=== PATIENT | female | born 1995 | race Caucasian/White ===

== ENCOUNTER → 2022-08-26 | Outpatient (CLI) | payer OTHER, SELFPAY ==
[2022-08-26 15:06] LABS: Absolute Lymphocyte Count 2.18 X10^3/uL (0.83-4.51); Absolute Neutrophil Count 7.3 X10^3/uL (2.0-7.7); Basophil# 0.07 X10^3/uL; Basophil% 0.7 % (0-1); Eosinophil# 0.09 X10^3/uL; Eosinophils% 0.9 % (0-5); Hematocrit 36.7 % (37-47); Hemoglobin 12.4 g/dL (12.0-15.0); Lymphocyte # 2.18 X10^3/ul (0.83-4.51); Mean Corp Hgb Conc 33.8 g/dL (32-36); Mean Corpuscular Hgb 32.3 pg (27.0-32.0); Mean Corpuscular Volume 95.6 fL (81-99); Monocyte# 0.68 X10^3/uL; Monocyte% 6.5 % (0-10); NRBC Flagged by Analyzer 0 % (0-5); Neutrophil # 7.29 X10^3/uL (2.7-7.7); Neutrophil % 70.1 % (47-70); Platelet Count 247 K/mm3 (150-450); RBC Distribution Width CV 12.1 % (11.6-14.6); RBC Distribution Width SD 42.4 fl (35.1-43.9); Red Blood Count 3.84 M/mm3 (4.2-5.4); White Blood Count 10.4 K/mm3 (4.4-11.0)
[2022-08-26 16:39] LABS: HIV - WCH Non-Reactive (Nonreactive); Hepatitis B Surface Antigen Non-Reactive (Nonreactive); Hepatitis C Antibody Non-Reactive (Nonreactive); Rubella IgG Reactive (Nonreactive); Syphilis Antibodies Non-reactive
[2022-08-28 17:22] LABS: V-Zoster IgG (Immunity) 1075 index (Immune >165)
== END | disposition home or self-care (01) ==
PROVIDERS: Visit Provider Obstetrics & Gynecology
DX: Z34.81 Encounter for supervision of other normal pregnancy, first trimester (principal)
CPT/HCPCS: 36415; 85025; 86703; 86762; 86780; 86787; 86803; 87086; 87340

== ENCOUNTER → 2022-10-30 | Outpatient (CLI) | payer OTHER, SELFPAY ==
[2022-10-30 14:49] LABS: Absolute Lymphocyte Count 2.18 X10^3/uL (0.83-4.51); Absolute Neutrophil Count 10.6 X10^3/uL (2.0-7.7); Basophil# 0.09 X10^3/uL; Basophil% 0.6 % (0-1); Eosinophil# 0.08 X10^3/uL; Eosinophils% 0.6 % (0-5); Glucose Challenge Gest 1H 50g 109 mg/dL (70-140); Hematocrit 37.6 % (37-47); Hemoglobin 12.5 g/dL (12.0-15.0); Lymphocyte # 2.18 X10^3/ul (0.83-4.51); Lymphocyte % 15.4 % (19-41); Mean Corp Hgb Conc 33.2 g/dL (32-36); Mean Corpuscular Hgb 32.6 pg (27.0-32.0); Mean Corpuscular Volume 98.2 fL (81-99); Mean Platelet Vol. 11.1 fl (6.2-12.0); Monocyte# 0.85 X10^3/uL; NRBC Flagged by Analyzer 0 % (0-5); Neutrophil # 10.57 X10^3/uL (2.7-7.7); Neutrophil % 74.7 % (47-70); Platelet Count 230 K/mm3 (150-450); RBC Distribution Width CV 12.4 % (11.6-14.6); RBC Distribution Width SD 45.3 fl (35.1-43.9); Red Blood Count 3.83 M/mm3 (4.2-5.4); White Blood Count 14.2 K/mm3 (4.4-11.0)
[2022-10-30 15:13] LABS: Syphilis Antibodies Non-reactive
== END | disposition home or self-care (01) ==
LOC: WOBLAB 14:13
PROVIDERS: Visit Provider Obstetrics & Gynecology
DX: Z34.82 Encounter for supervision of other normal pregnancy, second trimester (principal); Z3A.00 Weeks of gestation of pregnancy not specified
CPT/HCPCS: 36415; 82950; 85025; 86780

== ENCOUNTER → 2023-01-15 | Outpatient (CLI) | payer OTHER, SELFPAY ==
[2023-01-15 16:50] LABS: Hematocrit 36.2 % (37-47); Hemoglobin 11.8 g/dL (12.0-15.0); Mean Corp Hgb Conc 32.6 g/dL (32-36); Mean Corpuscular Hgb 30.9 pg (27.0-32.0); Mean Corpuscular Volume 94.8 fL (81-99); Mean Platelet Vol. 11.7 fl (6.2-12.0); Platelet Count 220 K/mm3 (150-450); RBC Distribution Width CV 12.3 % (11.6-14.6); RBC Distribution Width SD 42.4 fl (35.1-43.9); Red Blood Count 3.82 M/mm3 (4.2-5.4); White Blood Count 13.5 K/mm3 (4.4-11.0)
== END | disposition home or self-care (01) ==
LOC: LABSPEC 16:19
PROVIDERS: Referring Provider Obstetrics & Gynecology; Visit Provider Obstetrics & Gynecology
DX: Z34.83 Encounter for supervision of other normal pregnancy, third trimester (principal); Z36.85 Encounter for antenatal screening for Streptococcus B; Z3A.00 Weeks of gestation of pregnancy not specified
CPT/HCPCS: 85027; 87081

== ENCOUNTER 2023-01-21 18:45 | Outpatient (CLI) | payer OTHER, SELFPAY ==
[2023-01-21 18:58] VITALS: BP 133/89; PULSE 75
[2023-01-21 18:59] VITALS: BP 133/89; PULSE 77; PULSE 82; TEMP 36.9; O2SAT 100
[2023-01-21 19:04] VITALS: PULSE 67; O2SAT 100
[2023-01-21 19:15] VITALS: BP 121/83; PULSE 77
[2023-01-21 19:18] VITALS: BMI 25.9
[2023-01-21 19:29] VITALS: BP 121/76; PULSE 72
[2023-01-21] MEDS: Lactated Ringers 1,000 ML 999 ML IV (19:30)
--- NOTE | 2023-01-21 19:34 | EKG12_ITS ---
Test Reason : IRR HB Blood Pressure : / mmHG Vent. Rate : 069 BPM Atrial Rate : 069 BPM P-R Int : 146 ms QRS Dur : 082 ms QT Int : 386 ms P-R-T Axes : 022 011 -03 degrees QTc Int : 413 ms Normal sinus rhythm Normal ECG No previous ECGs available Confirmed by IRENA MOORE, JASPER ([id number]), map editor SABINA COE ([id number]) on 01/23/2023 1:33:42 PM Referred By: Confirmed By:FREDY OSBORN MD
[2023-01-21 19:44] VITALS: TEMP 37.5
[2023-01-21 19:52] LABS: Absolute Lymphocyte Count 2.08 X10^3/uL (0.83-4.51); Basophil# 0.08 X10^3/uL; Basophil% 0.6 % (0-1); Eosinophil# 0.06 X10^3/uL; Eosinophils% 0.5 % (0-5); Hematocrit 36.7 % (37-47); Hemoglobin 11.7 g/dL (12.0-15.0); Lymphocyte # 2.08 X10^3/ul (0.83-4.51); Lymphocyte % 16.8 % (19-41); Mean Corp Hgb Conc 31.9 g/dL (32-36); Mean Corpuscular Hgb 30.4 pg (27.0-32.0); Mean Corpuscular Volume 95.3 fL (81-99); Monocyte# 0.94 X10^3/uL; Monocyte% 7.6 % (0-10); NRBC Flagged by Analyzer 0 % (0-5); Neutrophil # 8.95 X10^3/uL (2.7-7.7); Neutrophil % 72.1 % (47-70); Platelet Count 204 K/mm3 (150-450); RBC Distribution Width CV 12.5 % (11.6-14.6); RBC Distribution Width SD 42.8 fl (35.1-43.9); Red Blood Count 3.85 M/mm3 (4.2-5.4); White Blood Count 12.4 K/mm3 (4.4-11.0)
[2023-01-21 20:08] LABS: ALB/GLOB Ratio 0.6 RATIO (0.9-2.4); AST(SGOT) 11 U/L (15-37); Alanine Aminotransfer ALT/SGPT 13 U/L (13-56); Albumin, Serum 2.7 g/dL (3.2-5.0); Alkaline Phosphatase 145 U/L (45-117); Anion Gap 7 (5-15); BUN 9 mg/dL (7-18); BUN/Creat Ratio 12.8 RATIO (10-20); Calcium,Total 8.6 mg/dL (8.5-10.1); Chloride 105 mmol/L (98-107); EST Glomerular Filtration Rate 105 mL/min (>60); Est Glom Filt Rate - Afr Amer 127 mL/min (>60); Estimated Creatinine Clearance 133.73 ml/min; Globulin 4.2 g/dL (2.2-4.2); Glucose 92 mg/dL (74-106); LDH 195 U/L (84-246); Potassium 3.5 mmol/L (3.5-5.1); Protein, Total 6.9 g/dL (6.4-8.2); Sodium Level 135 mmol/L (136-145)
--- NOTE | 2023-01-21 21:32 | OB.TRI.NOTE ---
HPI - General General Date of Service: 01/21/23 HPI Narrative EDNA SMITH, is a 27 F who presents after noticing visual changes and confusion at home after work. State patient states long day at work being overworked and did admit that she was dehydrated today. States finished work had some tunnel vision that improved after rest and some hand swelling. Arrived home and begin to rest and hydrate and her noted that she was partially confused about family and friends names. Patient also admits that she felt super anxious at the time and admits that she may have continue to have increased anxiety over time. Now at triage feels well feels alert and denies confusion and denies visual changes. Denies shortness of breath, chest pain, right upper quadrant pain, weakness. Denies any weakness in limbs or limitations. States good movement PFSH PFSH Home Medications magnesium 200 mg tablet 200 mg PO DAILY 01/21/23 [History Last Taken 01/21/23 07:00 200 mg] vit no.95-ferrous fumarate 28 mg-folic acid 800 mcg tablet ( Multivitamins) 1 tab PO DAILY 01/21/23 [History Last Taken 01/21/23 19:00 1 TAB] Allergy/AdvReac Type Severity Reaction Status Date / Time No Known Allergies Allergy Verified 01/21/23 19:19 Physical Exam Const alert, oriented x3, no apparent distress, average body habitus, no limitations, healthy appearing and well nourished General Appearance: cooperative and comfortable HEENT moist oral mucous membranes Head and Scalp: normocephalic and atraumatic Eyes PERRL Neck full ROM Resp normal respiratory effort, no retractions, no use of accessory muscles and clear to auscultation bilaterally Resp Narrative: No wheezes rales or crackles Cardio regular rate, regular rhythm, S1 normal heart sound, S2 normal heart sound, no murmurs, no rub, no gallops and peripheral pulses 2+ throughout GI normal to inspection, nondistended, normoactive bowel sounds GI Narrative: Gravid. Negative right upper quadrant pain Extremity normal to inspection, full ROM and no clubbing, cyanosis or edema Neuro moves all extremities, no focal motor deficits and deep tendon reflexes 2+ bilaterally Motor Exam: strength 5/5 throughout and clonus absent Psych mental status grossly normal, affect normal, speech normal and activity/motor behavior normal NST FHR Rate Baby A Baseline: 120 Variability:: Moderate Accelerations:: 15 x 15 Decelerations:: None NST Reactive:: Yes Uterine Activity:: Every 8 minutes Assessment & Plan (1) : PLAN: Called by nursing patient arrived to triage with previous tunnel vision and confusion per partner. Nursing states partner noted at home to have confusion with patient's family's names. Nursing states overall currently seems to have no confusion and partner admits no confusion or limitations. Nursing also noted possible arrhythmia with auscultation but also admitted that the pulse ox rate was persistently normal. Given orders nursing for labs, EKG, continuous monitoring and to call with results. Called by nursing that patient continues to remain stable with no confusion or tunnel vision and partner admits patient seems recovered. Nursing informed me that EKG normal sinus and that air conditioning technician stated in room to continue monitoring and did not find arrhythmia. Labs within normal limits. Discussed case with nursing and nursing after further history patient admitted to increased levels of anxiety at work and admits possible panic attack. Informed nursing will come evaluate patient. Patient seen and examined. Overall patient resting comfortably in bed and appropriate AOA x3 no limitations no deficits. Rediscussed case thoroughly with patient's version and partner's version of the story. Patient and partner both admit patient feels fully recovered partner feels patient fully recovered. Patient states high anxiety at work with overstressed workload discussed note for work to limit work days and retry to reduce stress levels given therapeutic options both at home and with counseling for decreased anxiety. Overall my evaluation with no signs of arrhythmia possible PVC x1 heard during prolonged auscultation but overall 99% of the auscultation showed regular rate and rhythm. Again patient with no deficits or limitations. Patient denies cardiac history. Educated patient on options discussed overnight stay with cardiac consult to be seen in the morning, patient and partner declined at this time wishing to go home for rest and office appointment tomorrow. Discussed signs and symptoms of concern for repeat evaluation but overall based on patient's stability okay for discharge home. Patient now remains asymptomatic feels much improved after IV fluids and rest. Okay to discharge home
== END 2023-01-21 21:50 | disposition home or self-care (01) ==
LOC: WPOUT 18:55 → WP 18:55
PROVIDERS: Visit Provider Obstetrics & Gynecology
DX: O99.891 Other specified diseases and conditions complicating pregnancy (principal); H53.8 Other visual disturbances; Z3A.00 Weeks of gestation of pregnancy not specified
CPT/HCPCS: 96360; 36415; 59025; 59050; 80053; 83615; 85025; 86850; 86900; 86901; 93005; 99221; J7120; G0378

== ENCOUNTER 2023-02-05 11:35 | Inpatient (IN) | payer OTHER, SELFPAY ==
[2023-02-05] VITALS (15 sets, daily range): BP systolic 106–138; BP diastolic 59–88; PULSE 67–105; RESP 18; TEMP 36.8–37.1; O2SAT 99; BMI 26.1
[2023-02-05 09:11] LABS: ROM Internal Control Test YES-OK TO RESULT pt. (Internal QC); Record Kit Lot#, ROM+ K1374
[2023-02-05 09:29] LABS: ROM Patient Test Negative (Negative)
[2023-02-05] MEDS: 0.9% Saline Lock 10 ML Syringe IV (12:00)
[2023-02-05 12:24] LABS: Absolute Lymphocyte Count 2.11 X10^3/uL (0.83-4.51); Basophil# 0.08 X10^3/uL; Basophil% 0.6 % (0-1); Eosinophil# 0.08 X10^3/uL; Eosinophils% 0.6 % (0-5); Hematocrit 37.8 % (37-47); Hemoglobin 11.9 g/dL (12.0-15.0); Lymphocyte # 2.11 X10^3/ul (0.83-4.51); Lymphocyte % 15.4 % (19-41); Mean Corp Hgb Conc 31.5 g/dL (32-36); Mean Corpuscular Hgb 30.1 pg (27.0-32.0); Mean Corpuscular Volume 95.5 fL (81-99); Mean Platelet Vol. 12.1 fl (6.2-12.0); Monocyte# 1.08 X10^3/uL; Monocyte% 7.9 % (0-10); NRBC Flagged by Analyzer 0 % (0-5); Neutrophil # 10.04 X10^3/uL (2.7-7.7); Neutrophil % 73.2 % (47-70); Platelet Count 230 K/mm3 (150-450); RBC Distribution Width CV 12.8 % (11.6-14.6); RBC Distribution Width SD 44.3 fl (35.1-43.9); Red Blood Count 3.96 M/mm3 (4.2-5.4); White Blood Count 13.7 K/mm3 (4.4-11.0)
--- NOTE | 2023-02-05 13:36 | PCM.HP.BLA ---
History and Physical Date of Admission: 02/05/23 HPI: 27-year-old G1, P0 at 39/1 weeks, RANDY 02/11/2023 by first trimester ultrasound, admitted in labor. Patient reports contractions.. Denies vaginal bleeding or decrease in movement. Denies headache or vision changes, chest pain or shortness of breath, nausea or vomiting, diarrhea constipation. 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 Right foot surgery in 2022, was on Lovenox for a few weeks post surgery 2. [place] tooth extraction Family history: Denies history of blood clots or bleeding disorders, no history of issues with anesthesia Allergies: B no known drug allergies Social history: Denies tobacco, alcohol, drug use Review of system: Negative otherwise stated above Physical exam: Blood pressure 127/84, heart rate 74, temp 98.7 ?F, oxygen saturation 99% on room air General: No acute distress HEENT: Normal cephalic/atraumatic Cardiorespiratory: No increased effortar Abdomen: Soft, nontender, gravid Extremities: No edema Neurologic: No focal deficits Musculoskeletal: Moves all extremities equally Cervical exam: Per RN 3 cm FHR: 140/mod lynne/+accel/no decel Assessment/plan: 27-year-old G1, P0 at 39/1 weeks, RANDY 02/11/2023 by first trimester ultrasound, admitted in labor. ?Admit to labor and delivery, no routine orders ? GBS negative ? ROM was negative ? Continue expectant management, consider AROM if needed.
[2023-02-05] MEDS: Lactated Ringers 1,000 ML 150 ML IV (13:57)
[2023-02-05 15:00] LABS: Syphilis Antibodies Non-reactive
--- NOTE | 2023-02-05 17:17 | EX.PCM.OBRPT ---
Maternal Data Information Final RANDY: 02/11/23 Vaginal Delivery Operative Information Date of Procedure: 02/05/23 Pre-Operative Diagnosis: Frais intrauterine Post-Operative Diagnosis: Same Type of Anesthesia: None Estimated Blood Loss: 300 cc Findings Description of Procedure: Spontaneous vaginal delivery of viable infant female. No nuchal cord. Baby to mom. Cord clamped and cut. Spontaneous delivery of placenta. Second-degree laceration. Lidocaine injected. Laceration repaired in the usual fashion, hemostatic. Patient declines prophylactic Pitocin. Understands risk. Amniotic Fluid Description: Lightly stained meconium A Gender: Female (1 minute): 8 (5 minute): 9 Delayed Cord Clamping: Yes Complication Complications: None
[2023-02-05] MEDS: Acetaminophen 500 MG Tablet 1000 MG PO (17:59)
[2023-02-05] MEDS: Lidocaine 1% (20 ml mdv) 20 ML Vial INFILT (19:13)
[2023-02-06] VITALS (10 sets, daily range): BP systolic 114–130; BP diastolic 67–79; PULSE 74–86; RESP 15–18; TEMP 36.8–37.1; O2SAT 97–99
--- NOTE | 2023-02-06 06:46 | PCM.PN.OB ---
Subjective Subjective No overnight complaints Objective Data Objective Data Vital Signs: Vital Signs Temp Pulse Resp BP Pulse Ox O2 Del Method 98.3 F 74 18 116/67 99 Room Air 02/05/23 20:43 02/06/23 04:24 02/06/23 04:24 02/06/23 04:24 02/05/23 08:30 02/06/23 04:24 Oxygen Delivery Method Room Air Weight: 187 lb 6.287 oz Body Mass Index (BMI) 26.1 Intake & Output: Intake and Output for Last 24 Hours 02/04/23 02/05/23 02/06/23 23:59 23:59 23:59 Intake Total 720 / 720 Output Total 300 / 300 Balance 420 / 420 Lab / Micro Data 02/05/23 12:00 Labs: Laboratory Results - last 24 hr 02/05/23 08:49: Vag Amniotic Fld Detect Negative 02/05/23 12:00: WBC 13.7 H, RBC 3.96 L, Hgb 11.9 L, Hct 37.8, MCV 95.5, MCH 30.1, MCHC 31.5 L, RDW Std Deviation 44.3 H, RDW Coeff of Jolene 12.8, Plt Count 230, MPV 12.1 H, Immature Gran % (Auto) 2.300 H, Neut % (Auto) 73.2 H, Lymph % (Auto) 15.4 L, [place] % (Auto) 7.9, Eos % (Auto) 0.6, Baso % (Auto) 0.6, Absolute Neuts (auto) 10.0 H, Absolute Lymphs (auto) 2.11, Nucleated RBC % 0, Syphilis Total Ab Non-reactive, Blood Type B POSITIVE, Antibody Screen NEGATIVE Physical Exam Const alert, oriented x3, no apparent distress, average body habitus, healthy appearing and well nourished HEENT normocephalic and moist oral mucous membranes Eyes PERRL Neck full ROM Resp normal respiratory effort, no retractions and no use of accessory muscles GI GI Narrative: Soft, nontender, uterus firm and below umbilicus Extremity normal to inspection and full ROM Neuro moves all extremities and no focal motor deficits Psych mental status grossly normal, affect normal, speech normal and activity/motor behavior normal Assessment & Plan (1) Vaginal delivery: PLAN: day 1. Breast-feeding. Pain well controlled. Okay to discharge home today if okay with final finisher
--- NOTE | 2023-02-06 06:47 | DCINST_ITS ---
Discharge Instructions Diet Discharge Diet: No restrictions Activity Discharge Activity: Return to Normal Activity, May Drive and May Shower May resume sexual activity in: 6-8 weeks Weight Bearing Status: Weight bearing as tolerated Dressing / Incision Call your doctor if your incision/area has: Continuous Slow Oozing and Foul Smelling Discharge Call your doctor if you observe: Fever of 101 or Higher, Shortness of breath and Chest pain Follow Up Care Please Follow Up With: Giorgi Duarte MD When: 3 to 4 weeks Test Results: Test results from this visit will be discussed in further detail at your follow- up appointment, if applicable. Discharge Plan Admission Admit Date/Time: 02/05/23 11:35 Attending Provider: Dena Duarte Primary Care Provider: Care Physician,Meghana Primary Discharge Orders/Prescriptions Prescriptions: No Action PNV cmb#95-ferrous fumarate-FA [ Multivitamins] 28 mg iron- 800 mcg tablet 1 tab PO DAILY magnesium 200 mg tablet 300 mg PO DAILY Referrals / Follow Up: Care Physician,No Primary [Primary Care Provider] -
[2023-02-06] MEDS: Ibuprofen 600 MG Tablet PO (10:15)
[2023-02-06] MEDS: Senna/Docusate Sodium 1 Tablet PO (13:59)
[2023-02-06] MEDS: Acetaminophen 500 MG Tablet 1000 MG PO ×2 (14:09→22:12)
--- NOTE | 2023-02-06 15:45 | CASEMGMT ---
Social Work Assessment Labor and Delivery Unit Patient Address:[address] [place] [id number] Phone number: [phone] Date of Referral: 02/05/23 Time of Referral:?1310 Referred By: Dr. Giorgi Duarte Date of Intervention: 02/06/23?? Time of Intervention:? 1030 Reason for Referral:? Patient answered that her father has an addiction Sw completed chart review and acknowledges social work consult. Sw presented to bedside and met with mother of baby (ROGELIO- Sherie) and father of baby (FOB- Juanjose). Sw introduced self and explained sw role during hospitalization. Sw completed psychosocial assessment with parents and provided much support. History obtained from: medical records, MOB and FOB. Household composition: Household composition is currently comprised of parents and baby girl. Parents state that no one else resides with them at this time. Patient's parent/guardian status:? ROGELIO is 28 year old, female who is to Cheryl. Parents state that they met in 2015 while in college together at [employer]. Parents got in 2019. baby is first baby for both parents. When talking with ROGELIO privately she denied any concerns of domestic abuse or intimate partner violence. Medical History: ROGELIO received routine care throughout with [place]. ROGELIO states that she is worried who to go to for OBGYN services at this time due to [facility] announcing that they are no longer going to be practicing. ROGELIO is 1, para 0- now 1. Baby girl, Jaida Sewell, was born on 02/05/23 weighing 8lb and her apgars were 8 and 9 at one and five minutes of life respectfully. ROGELIO states that she is breast feeding and this is going well, but feels as though she and baby are still learning. Sw enouraged ROGELIO to utilize [facility] as well as outpatient services that are available to her even after discharge. MOB state that she does have a pump. Educational Status: Both parents graduated from high school and obtained college degrees from [employer]. Parents deny struggles or issues with learning. Financial Status: Both parents are gainfully employed outside of the home. 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 ROGELIO works at [employer] in the admissions department. Both parents are able to take time off of work now that baby has been born. Supplies:?Parents state that they have obtained all necessary baby items including: car seat, safe sleep space, clothes, diapers, wipes and breast pump. Childcare/Caregiver(s):? MOB states that when both parents have returned to work they will be able to use some family members and friends for childcare. Transportation:??Both parents have their drivers license and reliable means of transportation. No barriers to transportation at this time. Programs/Agencies Involved: None at this time. ??? Children Services/Legal Issues:??No former involvement with Children's Services, no issues or concerns warranting a referral to be made. ? Behavioral Health Issues: ??Mental Health History: Both parents deny history of mental health. ??? Substance Use History:?Both parents deny substance use prior to and during . ? Family History:???MOB states that her father is an alcoholic. MOB states that this is something that started when he retired from the when she was a teenager. MOB states that she and FOB have discussed this concern and have agreed that they have boundaries they will follow now that baby has been born. Parents state that they live an hour away from maternal grandparents, and maternal grandpa will not ever be responsible for providing care to baby independently. ?? Drug Screens: No urine screens observed. ? Family/Social Stressors:? MOB states that the biggest stressor they have is the fact that her dad is an alcoholic. MOB states that it took her a long time to recognize and acknowledge that SANTO was right about this. MOB state that this did affect their marriage for a temporary time. MOB states that she feels comfortable and confident with the decisions that she and FOB have made together on how to navigate this issue now that their baby has been born. Support Systems: Parents state that both sets of families are extremely supportive. Depression/Shaken Baby/Safe Sleeping:?Sw educated MOB and FOB on signs and symptoms of baby blues and depression/ anxiety. MOB asked appropraite questions about when she would notice symptoms if any. Sw provided literature for MOB to review at her convenience. Sw encouraged parents to talk about things that FOB can do to help support MOB during this period. Sw also encouraged MOB to follow up with her doctor should she feel as though she is struggling with her mental health. Parents expressed understanding. Sw educated parents on shaken baby prevention and ABCs of safe sleep. Parents expressed understanding. ASSESSMENT:? Parents were observed to interact very lovingly and respectfully towards one another. MOB also provided loving and appropriate hands on care to baby while sw completed assessment. Parents were very talkative and engaged during psychosocial assessment. Parents were receptive and thankful for sw involvement and support. MOB expressed understanding of baby blues and depression and was open to discussing struggles she has had throughout her lifetime with her father as an alcoholic. PLAN:? MOB and baby to be discharged when medically ready. ?No other services requested or indicated. Cece Winter, FORKLIFT SUPERVISOR, DEHORNER
[2023-02-07 01:19] VITALS: BP 114/70; PULSE 60; RESP 16; TEMP 36.6
[2023-02-07] MEDS: Ibuprofen 600 MG Tablet PO (07:51)
[2023-02-07 07:53] VITALS: BP 120/76; PULSE 80
[2023-02-07 08:00] VITALS: BP 120/76; PULSE 80; RESP 14; TEMP 36.6
--- NOTE | 2023-02-07 09:54 | DS.PCM_ITS ---
Discharge Summary Date of Admission: 02/05/23 Date of Discharge: 02/07/23 Summary: Patient arrived on 02/05/2023 in labor subsequently delivered on 02/05/2023. Routine recovery and discharged home on 02/07/2023 Meaningful Use Info Meaningful Use Diagnoses (Choose all that apply): None applicable Discharge Plan Admission Admit Date/Time: 02/05/23 11:35 Primary Reason for Your Visit: Labor Attending Provider: Dena Duarte Primary Care Provider: Care Physician,Meghana Primary Instructions Additional Instructions / Restrictions: Regular diet. Weightbearing as tolerated. Okay to shower. No intercourse for 6 to 8 weeks. Call if fevers, chills, chest pain, shortness of breath. Follow- up 3 to 4 weeks Discharge Orders/Prescriptions Prescriptions: No Action PNV cmb#95-ferrous fumarate-FA [ Multivitamins] 28 mg iron- 800 mcg tablet 1 tab PO DAILY magnesium 200 mg tablet 300 mg PO DAILY Referrals / Follow Up: Care Physician,No Primary [Primary Care Provider] - Disposition Disposition (needs filled in before D/C Order can be placed): Home, Self Care
--- NOTE | 2023-02-07 09:55 | PCM.PN.OB ---
Subjective Subjective No overnight complaints Objective Data Objective Data Vital Signs: Vital Signs Temp Pulse Resp BP Pulse Ox O2 Del Method 98 F 80 16 120/76 98 Room Air 02/07/23 01:19 02/07/23 07:53 02/07/23 01:19 02/07/23 07:53 02/06/23 20:30 02/07/23 01:19 Oxygen Delivery Method Room Air Weight: 187 lb 6.287 oz Body Mass Index (BMI) 26.1 Intake & Output: Intake and Output for Last 24 Hours 02/05/23 02/06/23 02/07/23 23:59 23:59 23:59 Intake Total 720 / 720 Output Total 300 / 300 Balance 420 / 420 Lab / Micro Data 02/05/23 12:00 Physical Exam Const alert, oriented x3, no apparent distress, average body habitus, healthy appearing and well nourished HEENT normocephalic and moist oral mucous membranes Eyes PERRL Neck full ROM Resp normal respiratory effort, no retractions and no use of accessory muscles GI GI Narrative: Soft, nontender, uterus firm and below umbilicus Extremity normal to inspection and full ROM Neuro moves all extremities and no focal motor deficits Psych mental status grossly normal, affect normal, speech normal and activity/motor behavior normal Assessment & Plan (1) Vaginal delivery: PLAN: day 2. Breast-feeding. Pain well controlled. Okay to discharge home today
== END 2023-02-07 10:46 | disposition home or self-care (01) | DRG 807 ==
LOC: WPOUT 11:38 → WP 17:20
PROVIDERS: Obstetrics & Gynecology; Admitting Provider Student in an Organized Health Care Education/Training Program; Referring Provider Student in an Organized Health Care Education/Training Program; Visit Provider Student in an Organized Health Care Education/Training Program
DX: O77.0 Labor and delivery complicated by meconium in amniotic fluid (principal); Z37.0 Single live birth; O70.1 Second degree perineal laceration during delivery; Z3A.39 39 weeks gestation of pregnancy
CPT/HCPCS: 59025; 59050; 84112; 85025; 86780; 86850; 86900; 86901; 99221; J7120; A4216; G0378

== ENCOUNTER 2024-02-14 13:07 | Emergency (ER) | payer OTHER, SELFPAY ==
[2024-02-14 13:09] VITALS: BP 112/83; PULSE 80; RESP 16; TEMP 36.4; O2SAT 99; BMI 21.4
--- NOTE | 2024-02-14 13:19 | CT_ITS ---
EXAM: CT ABDOMEN AND PELVIS WITH INTRAVENOUS CONTRAST CLINICAL INDICATION: Left lower quadrant pain TECHNIQUE: Helically acquired images were obtained of the abdomen and pelvis with intravenous contrast. This CT exam was performed using one or more of the following dose reduction techniques: automated exposure control, adjustment of the mA and/or kV according to patient size, and/or use of iterative reconstruction technique. CONTRAST: IV 100mL Isovue-370 RADIATION DOSE: CTDIvol = 12.84 mGy, DLP = 594.23 mGy-cm COMPARISON: No relevant prior studies available. FINDINGS: LOWER THORAX: Unremarkable. Lung bases are clear. No cardiomegaly. No significant pericardial effusion. ABDOMEN: LIVER: Unremarkable. Homogeneous. No focal mass. GALLBLADDER AND BILE DUCTS: Unremarkable. No calcified gallstones. No gallbladder distention or wall edema. No intra- or extrahepatic biliary ductal dilation. PANCREAS: Unremarkable. No focal cystic or solid mass. SPLEEN: Unremarkable. Normal size without focal cystic or solid mass. ADRENALS: Unremarkable. No nodules. KIDNEYS AND URETERS: Unremarkable. Normal renal size and position. No hydronephrosis. STOMACH AND BOWEL: Unremarkable. No stomach or bowel distention. No focal inflammatory change. PELVIS: APPENDIX: Appendix is unremarkable. BLADDER: Unremarkable. REPRODUCTIVE: Uterus is unremarkable. 26 mm right ovarian cyst. This is simple cyst. ABDOMEN and PELVIS: INTRAPERITONEAL SPACE: Unremarkable. No ascites or other fluid collection. No free air. BONES/JOINTS: Unremarkable. No suspicious lytic or blastic abnormality. SOFT TISSUES: Unremarkable. No discrete abdominal or pelvic wall hernia. VASCULATURE: Unremarkable. Abdominal aorta is non-dilated. LYMPH NODES: Unremarkable. No enlarged lymph nodes. CT/Abdomen/Pelvis W IV Cont ONLY IMPRESSION: No acute findings in the abdomen or pelvis. Electronically Signed: Evan Lemus MD at 15:05 EDT ,
--- NOTE | 2024-02-14 13:20 | ED.VIS.GI ---
HPI HPI - GI History of Present Illness Chief Complaint: Abd Pain Narrative Narrative: 28-year-old female who denies significant past medical history presents with left lower quadrant abdominal pain that she has had for about the last 4 days. She describes it more of a dull, achy pain. No exacerbating or alleviating factors. She states she feels more constipated than usual, no diarrhea. She might be slightly nauseated but has not vomited. No fevers or chills. She also has low back pain. Its across all of her back. She denies any dysuria or hematuria. No previous abdominal surgeries. Last menstrual period was approximately a year ago because she continues to breast-feed and her child is almost 1-year-old. She presents because of the dull, constant pain in the left lower quadrant of her abdomen. [facility] Medical History Abdominal pain Home Medications ?Medication ?Instructions ?Recorded ?Last Taken ?Type magnesium 200 mg tablet 300 mg PO DAILY leg cramps 01/21/23 02/04/23 22:00 History 300 mg vit no.95-ferrous 1 tab PO DAILY 01/21/23 02/04/23 22:00 History fumarate 28 mg-folic acid 800 mcg 1 TAB tablet ( Multivitamins) Allergy/AdvReac Type Severity Reaction Status Date / Time No Known Allergies Allergy Verified 02/05/23 08:45 Social History Smoking Status: Never smoker ROS ROS ED ROS Narrative Constitutional: No fever, no chills. HEENT: No sore throat. No neck pain. No loss of vision. No rhinorrhea. Cardiovascular: No chest pain. No palpitations. No pedal edema. Respiratory: No cough, no shortness of breath. Abdominal: Left lower quadrant abdominal pain. Positive nausea. No vomiting. More constipated than usual. Genitourinary: No dysuria. No hematuria. Musculoskeletal: No myalgias. No arthralgias. Bilateral low back pain. Neurologic: No headaches. No dizziness. No lightheadedness. Skin: No rash. No change in color. Psychiatric: No depression. No anxiety. EXAM Physical Exam Narrative Exam Narrative: Afebrile. Vital signs noted. HEENT: Normocephalic. Atraumatic. PERRL, EOMI. Neck soft and supple. No point tenderness or step off. Cardiovascular: Regular rate and rhythm. No murmurs, rubs, or gallops appreciated. Respiratory: No tachypnea. Lungs clear to auscultation bilaterally. Gastrointestinal: Abdomen soft, mild tenderness to palpation left lower quadrant with normoactive bowel sounds. No rebound or guarding. Neurological: Awake. Alert. Nonfocal, nonlateralizing. Skin: No rash. Normal color. No pallor. Musculoskeletal: No pedal edema. Full range of motion extremities. Const Vital Signs: 02/14/24 13:09 Temperature 97.5 F L Temperature Source Temporal Pulse Rate 80 Respiratory Rate 16 Blood Pressure 112/83 H Blood Pressure Mean 92 Pulse Ox 99 MDM MDM MDM Narrative Medical decision making narrative: Differential diagnosis includes but not limited to diverticulitis versus ovarian cyst versus ureterolithiasis versus nonspecific abdominal pain. Comprehensive workup was pursued. I do feel CT imaging is indicated. Lower on the differential would be ectopic because she has not had menstrual periods for approximately 1 year, but hCG serum will be obtained to rule this out and so that she can get CT imaging performed. I reviewed her laboratory work and she has normal white count 7.3, hemoglobin normal at 13.0, hematocrit 39.0, platelet count normal at 232. CMP is grossly unremarkable except for AST low at 14, normal alk phos of 58. Serum test is negative. I reviewed the radiology report of the CT of the abdomen and pelvis and there is no acute finding. Upon repeat examination, she is resting comfortably, but states she feels the same. I offered to write her for Bentyl but her pain is not really cramping. At this point in time, I feel she can be discharged to follow-up with her primary care provider for her nonspecific abdominal pain and back pain. Return instructions to the emergency department were reviewed. Disposition is discharged home in stable condition. History & Record Review Discussion w/independent historian: Patient Lab Data Attestation: I reviewed the patient's lab results. Labs: Laboratory Results - last 24 hr 02/14/24 02/14/24 13:27 14:30 WBC 7.3 RBC 4.17 L Hgb 13.0 Hct 39.0 MCV 93.5 MCH 31.2 MCHC 33.3 RDW Std Deviation 41.6 RDW Coeff of Jolene 12.1 Plt Count 232 MPV 11.4 Immature Gran % (Auto) 0.400 Neut % (Auto) 58.6 Lymph % (Auto) 27.6 [place] % (Auto) 8.1 Eos % (Auto) 4.2 Baso % (Auto) 1.1 H Absolute Neuts (auto) 4.3 Absolute Lymphs (auto) 2.02 Nucleated RBC % 0 Sodium 139 Potassium 4.5 Chloride 106 Carbon Dioxide 28.0 Anion Gap 5 BUN 17 Creatinine 0.64 Estim Creat Clear Calc 143.21 Est GFR (MDRD) Af Amer 141 Est GFR (MDRD) Non-Af 116 BUN/Creatinine Ratio 26.6 H Glucose 93 Calcium 8.6 Total Bilirubin 0.40 AST 14 L ALT 16 Alkaline Phosphatase 58 Total Protein 6.9 Albumin 3.7 Globulin 3.2 Albumin/Globulin Ratio 1.2 Serum , Qual NEGATIVE Urine Color Yellow Urine Clarity Clear Urine pH 6.0 Ur Specific [place] 1.015 Urine Protein 30 H Urine Glucose (UA) Normal Urine Ketones 15 H Urine Occult Blood Negative Urine Nitrite Negative Urine Bilirubin Negative Urine Urobilinogen Normal Ur Leukocyte Esterase Negative Urine RBC 0 SEEN Urine WBC 0 SEEN Ur Squamous Epith Cells 0 SEEN Urine Bacteria 0 SEEN Urine Mucus 0 SEEN Radiography Diagnostic Testing: Clinical Impression(s) from Imaging Studies Abdomen/Pelvis CT 02/14/24 13:19 IMPRESSION: No acute findings in the abdomen or pelvis. Electronically Signed: Evan Lemus MD at 15:05 EDT Reading Location ID and State: [address] [place] [address] , Service support , Discharge Plan Triage Chief Complaint: Abd Pain ED Provider: Michael Jose Dx/Rx/DC Orders Clinical Impression: Abdominal pain, Non-specific low back pain Instructions: ED Abdominal Pain Unkn Cause Fem, ED Back Pain (Acute or Chronic) Prescriptions: No Action PNV cmb#95-ferrous fumarate-FA [ Multivitamins] 28 mg iron- 800 mcg tablet 1 tab PO DAILY magnesium 200 mg tablet 300 mg PO DAILY Primary Care Provider: Care Physician,No Primary Referrals: Kenisha Ross MD [Med Staff - Active Staff] - As soon as possible Care Physician,No Primary [Primary Care Provider] - Print Language: Qatari Disposition Disposition: Home, Self Care
[2024-02-14] MEDS: 0.9% Normal Saline (1000mL) 1,000 ML 999 ML IV (13:30)
[2024-02-14 13:47] LABS: Internal QC Validated? YES +Cl - CLEAR BKGD; Pregnancy, Serum, hCG Quali. NEGATIVE Negative
[2024-02-14 13:57] LABS: ALB/GLOB Ratio 1.2 RATIO (0.9-2.4); AST(SGOT) 14 U/L (15-37); Alanine Aminotransfer ALT/SGPT 16 U/L (13-56); Albumin, Serum 3.7 g/dL (3.2-5.0); Alkaline Phosphatase 58 U/L (45-117); Anion Gap 5 (5-15); BUN 17 mg/dL (7-18); BUN/Creat Ratio 26.6 RATIO (10-20); Calcium,Total 8.6 mg/dL (8.5-10.1); Chloride 106 mmol/L (98-107); Creatinine, Serum 0.64 mg/dL (0.55-1.02); EST Glomerular Filtration Rate 116 mL/min (>60); Est Glom Filt Rate - Afr Amer 141 mL/min (>60); Estimated Creatinine Clearance 143.21 ml/min; Globulin 3.2 g/dL (2.2-4.2); Glucose 93 mg/dL (74-106); Potassium 4.5 mmol/L (3.5-5.1); Protein, Total 6.9 g/dL (6.4-8.2); Sodium Level 139 mmol/L (136-145)
[2024-02-14 14:08] LABS: Absolute Lymphocyte Count 2.02 X10^3/uL (0.83-4.51); Absolute Neutrophil Count 4.3 X10^3/uL (2.0-7.7); Basophil# 0.08 X10^3/uL; Basophil% 1.1 % (0-1); Eosinophil# 0.31 X10^3/uL; Eosinophils% 4.2 % (0-5); Lymphocyte # 2.02 X10^3/ul (0.83-4.51); Lymphocyte % 27.6 % (19-41); Mean Corp Hgb Conc 33.3 g/dL (32-36); Mean Corpuscular Hgb 31.2 pg (27.0-32.0); Mean Corpuscular Volume 93.5 fL (81-99); Mean Platelet Vol. 11.4 fl (6.2-12.0); Monocyte# 0.59 X10^3/uL; Monocyte% 8.1 % (0-10); NRBC Flagged by Analyzer 0 % (0-5); Neutrophil # 4.28 X10^3/uL (2.7-7.7); Neutrophil % 58.6 % (47-70); Platelet Count 232 K/mm3 (150-450); RBC Distribution Width CV 12.1 % (11.6-14.6); RBC Distribution Width SD 41.6 fl (35.1-43.9); Red Blood Count 4.17 M/mm3 (4.2-5.4); White Blood Count 7.3 K/mm3 (4.4-11.0)
[2024-02-14 14:33] LABS: Bacteria 0 SEEN /hpf (None Seen); Mucous, Urine 0 SEEN /hpf (<or=2+); Red Blood Cells-Urine 0 SEEN /hpf (0-5); Squamous Epithelial Cells - UA 0 SEEN /hpf (5-10); White Blood Cells 0 SEEN /hpf (0-5)
[2024-02-14 14:44] LABS: Color, Urine Yellow (Yellow); Glucose, Dipstick Normal (Normal); Ketone-Dipstick 15 mg/dl (Negative); Leukocyte Esterase-Dipstick Negative /ul (Negative); Nitrite-Dipstick Negative (Negative); Occult Blood-Urine Negative /ul (Negative); Protein-Dipstick 30 mg/dl (Negative); Specific Gravity, Urine 1.015 (1.002-1.030); Urine Bilirubin Dipstick Negative (Negative); Urine Clarity Clear (Clear); Urine Urobilinogen Normal (Normal)
[2024-02-14 15:56] VITALS: BP 111/86; PULSE 68; RESP 15; TEMP 36.1; O2SAT 98
== END 2024-02-14 15:57 | disposition home or self-care (01) ==
PROVIDERS: Emergency Provider Emergency Medicine; Visit Provider Emergency Medicine
DX: R10.32 Left lower quadrant pain (principal); M54.50 Low back pain, unspecified; R11.0 Nausea
CPT/HCPCS: 74177; 80053; 81001; 84703; 85025; 96360; 99283; J7030; Q9967; A4216

== ENCOUNTER 2024-11-21 23:14 | Inpatient (IN) | payer OTHER, SELFPAY ==
[2024-11-21 10:32] VITALS: BMI 25.3
[2024-11-21 10:42] VITALS: BP 124/80; PULSE 78; RESP 16; TEMP 36.4
[2024-11-21 10:44] VITALS: PULSE 75; O2SAT 99
[2024-11-21 22:40] VITALS: BP 131/79; PULSE 74; O2SAT 97
[2024-11-21] MEDS: Lactated Ringers 1,000 ML 50 ML IV (23:30)
[2024-11-21] MEDS: Betamethasone/Betamethasone 30 MG/5 ML Vial 12 MG IM (23:53)
[2024-11-22] VITALS (38 sets, daily range): BP systolic 105–139; BP diastolic 64–79; PULSE 62–163; RESP 16–18; TEMP 36.5–37.3; O2SAT 80–100
[2024-11-22 00:08] LABS: Absolute Lymphocyte Count 2.39 X10^3/uL (0.83-4.51); Absolute Neutrophil Count 8.3 X10^3/uL (2.0-7.7); Basophil# 0.06 X10^3/uL; Basophil% 0.5 % (0-1); Eosinophil# 0.04 X10^3/uL; Eosinophils% 0.3 % (0-5); Hematocrit 33.7 % (37-47); Hemoglobin 11.5 g/dL (12.0-15.0); Lymphocyte # 2.39 X10^3/ul (0.83-4.51); Lymphocyte % 20.2 % (19-41); Mean Corp Hgb Conc 34.1 g/dL (32-36); Mean Corpuscular Hgb 30.5 pg (27.0-32.0); Mean Corpuscular Volume 89.4 fL (81-99); Mean Platelet Vol. 11.4 fl (6.2-12.0); Monocyte# 0.86 X10^3/uL; Monocyte% 7.3 % (0-10); NRBC Flagged by Analyzer 0 % (0-5); Neutrophil # 8.29 X10^3/uL (2.7-7.7); Neutrophil % 70.2 % (47-70); Platelet Count 232 K/mm3 (150-450); RBC Distribution Width CV 12.2 % (11.6-14.6); RBC Distribution Width SD 39.6 fl (35.1-43.9); Red Blood Count 3.77 M/mm3 (4.2-5.4); White Blood Count 11.8 K/mm3 (4.4-11.0)
[2024-11-22 00:40] LABS: Syphilis Antibodies Nonreactive (Nonreactive)
--- NOTE | 2024-11-22 02:05 | PLAC_PTH ---
PATIENT: EDNA SMITH LOC: [facility] U#:[id number] AGE/SX: 29/F ROOM: [facility] RE11/21/[address]: Dr. Regina Romero DO : 1995 BED: 1 DIS: 11/23/2024 SPEC #: [id number] RECD: 11/22/24 02:47 STATUS: SANDI RUBENS #: [id number] EMELYN: 11/22/24 02:[address]: Regina Romero DEPT: SURGICAL PATHOLOGY RECD BY: Elan Erickson ENTERED: 11/22/24 10:14 SP TYPE: PLACENTA OTHR DR: Meghana Primary Care Phys Tissues: A - Placenta, NOS Procedures: Surgery Specimen Level V HEADER OPERATION: Delivery PRE-OP DIAGNOSIS: Prematurity TISSUE SUBMITTED: A- Placenta MICROSCOPIC DIAGNOSIS A. Placenta, delivery: * Eccentrically inserted and trivascular umbilical cord without active inflammation * Marginally (50%) and circummarginately (50%) inserted membranes without active inflammation * Mature (third trimester appearing) placenta without active inflammation and with one small and marginal infarct (0.7 cm in maximum dimension) MICROSCOPIC DESCRIPTION Slides are reviewed. GROSS DESCRIPTION A. Received in formalin in a container labeled with the patient's name, date of , and with the accompanying paperwork indicating, placenta is a 16.7 x 15.0 x 2.5 cm romero and discoid placenta with a trimmed weight of 330.4 g. The eccentrically located white-barros umbilical cord has 3 vessels and is 44 cm in length X 1.0 cm in diameter. There are approximately 3 coils per 10 cm. The pale barros membranes have a 50% circummarginate insertion and 50% marginal insertion. The surface is blue-christianson with prominent vasculature and multiple white-barros foci of subchorionic fibrin ranging from 0.9 x 0.8 cm to 1.5 x 1.1 cm (comprising less than 5% of the surface). The maternal surface has red-barros cotyledons that appear complete with a moderate amount of easily removed blood clot. Serial sections have a 0.7 x 0.7 x 0.5 cm white-barros and rubbery focus at the periphery (comprising less than 1% of the parenchymal surfaces). The remaining surfaces are red, spongy, and congested. School Boat Driver sections:A1. Umbilical cord and membrane rollA2. Full-thickness section with possible subchorionic fibrinA3. Full-thickness section with rubbery focusA4. Full-thickness section SMB 6-3-2025 CPT:87183
[2024-11-22] MEDS: Oxytocin 15 Units/NS 250ml 15 UNITS/250 ML IV.SOLN 334 UNITS IV (02:10)
[2024-11-22] MEDS: Lidocaine 1% (20 ml mdv) 20 ML Vial INFILT (02:18)
--- NOTE | 2024-11-22 02:28 | PCM.HP.OB ---
HPI - General General Date of Admission: 11/21/24 Date of Service: 11/22/24 Chief Complaint: contractions HPI Narrative EDNA SMITH, is a 29 F who presents with worsening contractions and bloody show at 4 cm dilated. [facility] Medical History (Updated 11/22/24 @ 02:[address] Regina Romero DO) Superficial varicosities Abdominal pain Home Medications ?Medication ?Instructions ?Recorded ?Last Taken ?Type magnesium 200 mg tablet 300 mg PO DAILY leg cramps 01/21/23 11/20/24 08:00 History 300 mg vit no.95-ferrous 1 tab PO DAILY 01/21/23 11/21/24 08:00 History fumarate 28 mg-folic acid 800 mcg 1 TAB tablet ( Multivitamins) Allergy/AdvReac Type Severity Reaction Status Date / Time No Known Allergies Allergy Verified 11/21/24 10:31 Surgical History (Updated 11/21/24 @ 11:46 by Bibi Modi) History of surgery History of surgery Social History Smoking Status: Never smoker History 1 Elective abortions Hx Para 1 Spontaneous abortions Hx # Term Pregnancies Ectopic pregnancies Hx # Pregnancies Multiple births # of living children 1 NST FHR Rate Baby A FHR Category:: Category I Vital Signs Vital Signs Vital Signs: 11/21/24 10:42 11/21/24 10:42 11/21/24 10:42 Temperature 97.5 F L Temperature Source Pulse Rate 78 Respiratory Rate Blood Pressure 124/80 H BP Systolic 124 BP Diastolic 80 Pulse Ox 11/21/24 10:42 11/21/24 10:42 11/21/24 10:42 Temperature 97.6 F L Temperature Source Temporal Pulse Rate Respiratory Rate 16 Blood Pressure BP Systolic BP Diastolic Pulse Ox 11/21/24 10:44 11/21/24 10:44 11/21/24 22:40 Temperature Temperature Source Pulse Rate 75 Respiratory Rate Blood Pressure 131/79 H BP Systolic 131 BP Diastolic 79 Pulse Ox 99 11/21/24 22:40 11/21/24 22:40 11/22/24 01:24 Temperature Temperature Source Pulse Rate 74 Respiratory Rate Blood Pressure 124/70 H BP Systolic 124 BP Diastolic 70 Pulse Ox 97 11/22/24 01:24 11/22/24 01:24 Temperature Temperature Source Pulse Rate 90 Respiratory Rate Blood Pressure BP Systolic BP Diastolic Pulse Ox 95 Weight Weight: 181 lb 10.574 oz Body Mass Index (BMI) 25.3 Physical Exam Const alert and no apparent distress Narrative: Cvx 4 cm on admission per RN Labs Labs Labs: Blood Type B POSITIVE Antibody Screen NEGATIVE Hct 33.7 % (37-47) L Hgb 11.5 g/dL (12.0-15.0) L Syphilis Total Ab Nonreactive (Nonreactive) VZV IgG Antibody 1075 index (Immune >165) Rubella IgG Antibody Reactive (Nonreactive) Hep Bs Antigen Non-Reactive (Nonreactive) Hepatitis C Antibody Non-Reactive (Nonreactive) HIV 1&2 Antibody Non-Reactive (Nonreactive) Glucose 1 Hr 50 gm 109 mg/dL (70-140) Assessment & Plan (1) 36 weeks gestation of : (2) labor: PLAN: Patient admitted for PTL. GBS negative. Epidural PRN pain control. Pelvis adequate and EFW < 4500 grams. Anticipate vaginal delivery. (3) delivery, delivered: (4) Vaginal delivery: (5) Obstetric vaginal laceration:
--- NOTE | 2024-11-22 02:31 | EX.PCM.OBVAG ---
Assessment & Plan (1) Obstetric vaginal laceration: (2) delivery, delivered: (3) labor: (4) 36 weeks gestation of : (5) Vaginal delivery: Vaginal Delivery Maternal Presentation Maternal Presentation: Active Labor Vaginal Delivery Information Procedure Performed: Spontaneous Vaginal Delivery Surgeon/Practitioner: Regina Romero Date of Procedure: 11/22/24 Pre-Procedure Diagnosis: 36 week gestation, labor Post-Procedure Diagnosis: As above Type of anesthesia: None Special Medications: None Estimated Blood Loss: 50 mL Fluids Replaced: N/A Findings Description of procedure: Patient progressed to 9 cm and an AROM was performed for clear fluid. Once 10 cm dilated, the patient pushed for one contraction to deliver the head, shoulders and body of the infant without any traction, force, or delay. A vigorous VFI was delivered and placed on the maternal abdomen. The cord was clamped and cut after a 60 second delay by the FOB. Cord gases were obtained. Pitocin was started, and the placenta delivered spontaneously. The placenta was noted to be normal appearing and intact with a 3 VC. The placenta was sent to pathology for review. Upon examination, a first degree vaginal laceration was noted to be bleeding. 5 mL of 1% lidocaine was injected, and the first degree laceration was repaired in usual fashion using 3-0 Vicryl for hemostasis. Fundus was firm and bleeding scant. A vaginal sweep was performed. Sponge and sharp counts were correct. Procedure findings: Vigorous VFI with Apgars 8, 9. Normal appearing placenta. First degree vaginal laceration Presentation: Vertex Amniotic Membrane Rupture Type: Artificial Amniotic Fluid Description: Clear Placental Delivery Description: Spontaneous Placenta Disposition: Sent to Pathology Specimen collected: No Cord Vessel Description: 3 Vessels Cord Entanglement: None Cord Gases: ABG and VBG Infant A Gender: Female (1 minute): 8 (5 minute): 9 Delayed Cord Clamping: Yes Technology Applications Teacher salesperson wigs: No Post Vaginal Deli Medications given after delivery: IV Pitocin Episiotomy Description: None Laceration: 1st degree Complication Complications: No
[2024-11-22] MEDS: Oxytocin 15 Units/NS 250ml 15 UNITS/250 ML IV.SOLN 83 UNITS IV (02:42)
[2024-11-22 02:46] LABS: Pathology Specimen OB SEE PATHOLOGY REPORT
[2024-11-22] MEDS: Acetaminophen 500 MG Tablet 1000 MG PO (03:04)
[2024-11-22] MEDS: Senna/Docusate Sodium 1 Tablet PO (06:33)
[2024-11-23 00:18] VITALS: BP 99/82; PULSE 87; RESP 16; TEMP 36.6; O2SAT 96
[2024-11-23] MEDS: Senna/Docusate Sodium 1 Tablet PO (05:17)
[2024-11-23] MEDS: Acetaminophen 500 MG Tablet 1000 MG PO (05:17)
[2024-11-23 05:29] VITALS: BP 119/74; PULSE 63; RESP 16; TEMP 36.6; O2SAT 93
--- NOTE | 2024-11-23 08:36 | DS.PCM_ITS ---
Providers Date of Admission: 11/21/24 Primary Care Physician: Meghana Primary Care Phys Reason For Visit: VAG Diagnosis Discharge Diagnosis (1) Obstetric vaginal laceration: Status: Acute Code(s): O71.4 - Obstetric high vaginal laceration alone (2) delivery, delivered: Status: Acute Code(s): O60.10X0 - labor with delivery, unspecified trimester, not applicable or unspecified (3) Vaginal delivery: Status: Acute Code(s): O80 - Encounter for full-term uncomplicated delivery (4) Care and examination of lactating mother: Status: Acute Code(s): Z39.1 - Encounter for care and examination of lactating mother Medications at Discharge Home Medications magnesium 200 mg tablet 300 mg PO DAILY leg cramps 01/21/23 vit no.95-ferrous fumarate 28 mg-folic acid 800 mcg tablet ( Multivitamins) 1 tab PO DAILY 01/21/23 acetaminophen 500 mg tablet 1,000 mg (2 x 500 mg) PO Q6H PRN PRN Pain 1-10 Or Fever #0 tabs 11/23/24 ibuprofen 600 mg tablet 600 mg PO Q6H PRN PRN Pain Score 1-10 #0 tabs 11/23/24 Hospital Course Operations None Procedures None Summary of Care Provided Minutes Spent on Discharge: 15 Hospital Course: Patient had vaginal delivery. Hospital course was uneventful. Physical Exam Narrative Patient seen at bedside. Denies pain. Ambulating and voiding without difficulty. Lochia decreased. Desires discharge home today. Const alert and oriented x3 General Appearance: Negative for in distress HEENT normocephalic Eyes General Eye: normal appearance of both eyes Neck General: normal visual inspection Chest Chest: symmetrical chest wall rise Resp normal respiratory effort and normal air movement Effort and Inspection: symmetric chest movement; Negative for tachypneic Auscultation: clear to auscultation bilaterally Cardio regular rate and regular rhythm Peripheral Pulses: pulses 2+ throughout GI normal to inspection, nondistended, normoactive bowel sounds Narrative: Ice to perineum OB / External & Speculum: vaginal bleeding and other Lochia decreasing Uterus Palpation: uterus fundus firm (Below U) Extremity normal to inspection, full ROM and normal capillary refill Skin no rashes or lesions noted Neuro oriented x3, CN's II-XII intact bilaterally and gait normal Psych mental status grossly normal, thought process normal and activity/motor behavior normal Weight / BMI Weight Weight: 181 lb 10.574 oz Body Mass Index (BMI) 25.3 ABG / Lab / Microbiology Data 11/21/24 23:30 D/C Instructions Discharge Diet: No restrictions Discharge Activity: Return to Normal Activity, No Restrictions, May Drive, May Shower and May Take a Tub Bath (Warm water only. No bath salts, soaps, bubbles) May resume sexual activity in: 6-8 weeks Weight Bearing Status: Weight bearing as tolerated Call your doctor if you observe: Fever of 101 or Higher, Inability to urinate, Using more than 1 pad per hour, Shortness of breath, Dizziness, Chest pain, Calf discomfort and Uncontrolled pain DC O2, CPAP, BIPAP Needs Home O2 Discharge instructions: No Please Follow Up With: [facility] Violet WALKER When: 2 weeks in office or virtual Meaningful Use Info Meaningful Use Meaningful Use Diagnoses (Choose all that apply): None applicable Ischemic Stroke Statin Dosing Therapy Reference: STATIN DOSE THERAPY REFERENCE: * Patients > 75 years receive moderate or high dose statin therapy. * Patients 75 years or YOUNGER should receive HIGH intensity statin dose unless contraindicated. You will be required to document reason for non-treatment if statin daily dose does not meet guidelines. HIGH DOSE STATIN THERAPY DAILY Atorvastatin > than or = to 40 mg Rosuvastatin > than or = to 20 mg Amlodipine + Atorvastatin > than or = to 2.5/40 mg Ezetimibe + Simvastatin 10/80 mg Simvastatin 80mg Discharge Plan Admission Admit Date/Time: 11/21/24 23:14 Primary Reason for Your Visit: Labor and Delivery Attending Provider: Regina Romero Primary Care Provider: Care Physician,No Primary Discharge Orders/Prescriptions Prescriptions: New acetaminophen 500 mg Tablet 1,000 mg PO Q6H PRN PRN (Reason: Pain 1-10 Or Fever) Qty: 0 0RF ibuprofen 600 mg Tablet 600 mg PO Q6H PRN PRN (Reason: Pain Score 1-10) Qty: 0 0RF Continued PNV cmb#95-ferrous fumarate-FA [ Multivitamins] 28 mg iron- 800 mcg tablet 1 tab PO DAILY magnesium 200 mg tablet 300 mg PO DAILY Referrals / Follow Up: Mariola Millard CNM [Med Staff - [facility] Practice Prof] - Care Physician,No Primary [Primary Care Provider] - Disposition Disposition (needs filled in before D/C Order can be placed): Home, Self Care
[2024-11-23 08:47] VITALS: BP 125/83; PULSE 84; RESP 16; TEMP 36.6; O2SAT 97
--- NOTE | 2024-11-23 11:10 | CASEMGMT ---
Social Work Labor and Delivery Unit Patient Address: [address] [place] [id number] Phone number:[phone] Date and Time of Referral:?11/21/24, 1141 Referred By: Regina Romero Date and time of intervention:? 11/23/24, 1000 Reason for Referral:?? father history of ETOH Sw completed chart review and acknowledges social work consult due to maternal grandpa having history of alcoholism. Sw presented to bedside and introduced self to mother of baby (MOB- Sherie) and father of baby (FOB- Juanjose). Sw is familiar with parents from prior delivery and admission to labor and delivery. Sw explained to parents sw role and completed assessment. Informant:?? Medical record and mother of baby (MOB) History:? ROGELIO is 29 year old female who is 2, para 1- now 2 following labor and delivery of . ROGELIO presented to hospital and delivered baby via vaginal delivery on 11/22/24 at 36 weeks gestation. Baby girl, named Amarilis Collazo, was born weighing 5lb 3oz with apgars of 8 and 9 at one and five minutes of life, respectfully. ROGELIO received routine care with [facility] during . ROGELIO and SANTO have been together since 2016 while attending college together at [employer]. They in 2019 and baby is second child for them together. No concerns reported of domestic violence or intimate partner violence. ROGELIO identifies that SANTO is one of her biggest supports along with her mother. SANTO is employed at his families Home, also where parents live and deny any problems or concerns with housing. 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 Parents deny mental health history. ROGELIO states that she did well during her period with her first daughter, Jaida who will be two in January. ROGELIO states that she felt like herself and is thankful that she did not struggle with any baby blues or depression/ anxiety. Parents deny substance use prior to and during . ROGELIO states that her father still struggles with alcoholism, and is not someone who is supportive or involved. ROGELIO states that she and FOCheryl do their best to set and stick to boundaries with her family, however sometimes it is hard for her. MOB states that FOB does a good job at holding her to the boundaries that they established together. Parents state that they are familiar with signs and symptoms of baby blues and depression and anxiety to be mindful of. MOB states that there were some things that she had to let go of that she was hoping to utilize during labor, but due to baby being born early they were not allowable. MOB states that they were hoping to be able to use the tub/ water to help calm and soothe her during labor. MOB states that she is thankful that baby is here and she is healthy, although slightly early. Sw educated parents on shaken baby prevention and ABCs of safe sleep, parents express understanding and agreement. Assessment:? MOB and baby admitted following labor and delivery. MOB and FOB both welcoming of sw and having discussion. Parents remember meeting with sw following their first daughter's delivery. MOB states that she knew by answering the admission questions honestly about her father's alcohol abuse, it would trigger social work consult. MOB states that things have been the same since their first daughter was born. MOB states that they are thankful for support and education provided by ragini. MOB states that her father does not acknowledge that his drinking is in excess or that it is a problem. MOB states that she and FOB do not drink, if ever it is only occasionally. Parents have all necessary baby items and have natural supports in place. Plan:??? MOB and baby to be discharged when medically ready. Hand outs and information provided to parents regarding: symptoms of baby blues and depression and anxiety, list of county resources, Help Me Grow, shaken baby prevention and ABCs of safe sleep. No further needs requested or indicated. Cece Winter, HVAC ENGINEER, BUSINESS SPECIALIST
[2024-11-23 11:24] VITALS: RESP 14
--- NOTE | 2024-12-06 13:17 | OB.TRI.HP_ITS ---
HPI - General General Date of Admission: 11/21/24 Date of Service: 11/21/24 Chief Complaint: contractions HPI Narrative EDNA SMITH, is a 29 F who presented for r/o labor. D/renata home and returned later same day in labor. [facility] Medical History (Updated 12/06/24 @ 13:[address] Ginette Tello MD) Care and examination of lactating mother Obstetric vaginal laceration delivery, delivered labor 36 weeks gestation of Vaginal delivery Superficial varicosities Abdominal pain Home Medications ?Medication ?Instructions ?Recorded ?Last Taken ?Type magnesium 200 mg tablet 300 mg PO DAILY leg cramps 0 01/21/23 11/20/24 08:00 History 300 mg vit no.95-ferrous 1 tab PO DAILY 01/21/2308/16 08:00 History fumarate 28 mg-folic acid 800 mcg 1 TA B tablet ( Multivitamins) acetaminophen 500 mg tablet 1,000 mg (2 x 500 mg) PO Q 6H PRN 11/23/24 Unknown Rx PRN Pain 1-10 Or Fever #0 tabs ibuprofen 600 mg tablet 600 mg PO Q6H PRN PRN Pain S core 11/23/24 Unknown Rx 1-10 #0 tabs Allergy/AdvReac Type Severity Reaction Status Date / Time No Known Allergies Allergy Verified 11/21/24 10:31 Surgical History (Updated 11/21/24 @ 11:46 by Bibi Modi) History of surgery History of surgery Social History Smoking Status: Never smoker History 1 Elective abortions Hx Para 1 Spontaneous abortions Hx # Term Pregnancies Ectopic pregnancies Hx # Pregnancies Multiple births # of living children 1 NST FHR Rate Baby A Baseline: 135 Variability:: Moderate Accelerations:: 15 x 15 Decelerations:: None NST Reactive:: Yes Uterine Activity:: irreg ctxs Assessment & Plan (1) Threatened labor, antepartum: PLAN: patient d/renata home return prn or f/u as scheduled. Ended up returning in labor same day
== END 2024-11-23 11:45 | disposition home or self-care (01) | DRG 807 ==
LOC: WPOUT 23:19 → WP 23:19
PROVIDERS: Admitting Provider Obstetrics & Gynecology; Referring Provider Obstetrics & Gynecology; Visit Provider Obstetrics & Gynecology
DX: O60.14X0 Preterm labor third trimester with preterm delivery third trimester, not applicable or unspecified (principal); Z37.0 Single live birth; O70.0 First degree perineal laceration during delivery; Z3A.36 36 weeks gestation of pregnancy
CPT/HCPCS: 59025; 59050; 85025; 86780; 86850; 86900; 86901; 88307; 99221; G0378; J0702